=== PATIENT | female | born 1950 | race Hispanic/Latino ===

== ENCOUNTER 2018-03-03 21:37 | Emergency (ER) | payer MEDICARE, OTHER ==
[2018-03-03 22:06] LABS: APPEARANCE,URINE Clear (CLEAR); BILIRUBIN,URINE Negative (NEGATIVE); COLOR,URINE Yellow (YELLOW); GLUCOSE, URINE (UA) Negative (NEGATIVE); KETONES,URINE Negative (NEGATIVE); LEUKOCYTE ESTERASE ,URINE Negative (NEGATIVE); NITRATE,URINE Negative (NEGATIVE); OCCULT BLOOD,URINE Negative (NEGATIVE); PROTEIN,URINE Negative (NEGATIVE); UROBILINOGEN,URINE 0.2 mg/dL (0.2-1.0)
[2018-03-03] MEDS ORDERED: ONDANSETRON HCL 4 MG/2 ML VIAL ONE (22:57)
[2018-03-03] MEDS ORDERED: MORPHINE SULFATE 4 MG/1ML SYG ONE (22:58)
[2018-03-03 23:05] LABS: BASOPHILS % (AUTO) 0.3 % (0.0-5.0); EOSINOPHILS % (AUTO) 3.2 % (0.0-8.0); HEMATOCRIT 34.6 % (36-48); LYMPHOCYTES % (AUTO) 28.3 % (21.0-51.0); MEAN CORPUSCULAR HEMOGLOBIN 29.7 pg (27.0-33.0); MEAN CORPUSCULAR VOLUME 87.4 fL (79-99); MONOCYTES % (AUTO) 7.2 % (3.0-13.0); PLATELET COUNT (AUTO) 291 K/uL (130-400); RED BLOOD CELL COUNT(AUTO) 3.96 MIL/uL (4.00-5.50); RED CELL DISTRIBUTION WIDTH 13.9 % (11.0-15.5); WHITE BLOOD COUNT (AUTO) 8.7 K/uL (4.8-10.8)
[2018-03-03 23:18] LABS: INR 0.98 (0.85-1.15); PARTIAL THROMBOPLASTIN TIME 25.9 SEC (26.3-35.5); PROTHROMBIN TIME 10.3 SEC (9.6-11.6)
[2018-03-03 23:19] LABS: CREATININE 0.7 mg/dL (0.5-1.5); POTASSIUM 3.7 mmol/L (3.5-5.1)
[2018-03-03 23:23] LABS: ALBUMIN 3.3 g/dL (3.5-5.0); BILIRUBIN,TOTAL 0.3 mg/dL (0.2-1.0); TOTAL PROTEIN, SERUM 7.6 g/dL (6.0-8.3)
[2018-03-04] MEDS ORDERED: KETOROLAC TROMETHAMINE 30MG/ML ONE (00:49)
== END 2018-03-04 01:14 | disposition home or self-care (01) ==
LOC: EDH 21:37
DX: M54.5 Low back pain (principal); M62.838 Other muscle spasm; M79.604 Pain in right leg; R10.31 Right lower quadrant pain; I10 Essential (primary) hypertension; F41.9 Anxiety disorder, unspecified; F32.9 Major depressive disorder, single episode, unspecified; I25.2 Old myocardial infarction
CPT/HCPCS: 36415; 74177; 80053; 81003; 83605; 83690; 84484; 85025; 85610; 85730; 96374; 96375; 99284; J1885; J2270; J2405

== ENCOUNTER → 2020-09-15 | Outpatient (CLI) | payer OTHER | END | disposition home or self-care (01) | LOC: RAH 08:56 | PROVIDERS: ATTEND Internal Medicine Gastroenterology | DX: R13.10 Dysphagia, unspecified (principal); K31.89 Other diseases of stomach and duodenum | CPT/HCPCS: 74220 ==